=== PATIENT | female | born 1985 | race Asian ===

== ENCOUNTER → 2018-08-06 | Outpatient (CLI) | payer OTHER ==
[2018-08-06 10:45] LABS: ALKALINE PHOSPHATASE 52 U/L (46-116); ALT/SGPT 15 U/L (14-59); AST/SGOT 13 U/L (15-37); BILIRUBIN TOTAL 0.5 mg/dL (0.20-1.00); CALCIUM 8.4 mg/dL (8.5-10.1); CARBON DIOXIDE 30.1 mmol/L (21-32); CHLORIDE SERUM 103 mmol/L (98-107); CHOLESTEROL 177 mg/dL (<200); CHOLESTEROL/HDL RATIO 3.1; CREATININE SERUM 0.6 mg/dL (0.6-1.0); FREE T4 1.11 ng/dL (0.76-1.46); GFR1 > 60 mL/min; GLUCOSE SERUM 86 mg/dL (74-106); HDL CHOLESTEROL 57 mg/dL (40-60); SODIUM SERUM 137 mmol/L (136-145); TRIGLYCERIDES 71 mg/dL (<150)
[2018-08-06 10:57] LABS: BASOPHIL % 0.4 % (0-2); PLATELET COUNT 289 x10^3mcL (130-400); RED CELL DISTRIBUTION WIDTH 13.2 % (11.5-14.5)
[2018-08-06 10:58] LABS: TOTAL PROTEIN, SERUM 8.4 g/dL (6.4-8.2)
[2018-08-06 11:01] LABS: UA SPECIFIC GRAVITY >=1.030 (1.005-1.035); microscopic required? YES; urine erythrocyte 3+ (NEGATIVE)
== END | disposition home or self-care (01) ==
LOC: LB 09:51
PROVIDERS: Family Medicine Geriatric Medicine
DX: Z13.29 Encounter for screening for other suspected endocrine disorder (principal); Z13.228 Encounter for screening for other metabolic disorders; Z13.21 Encounter for screening for nutritional disorder; Z13.1 Encounter for screening for diabetes mellitus; Z13.0 Encounter for screening for diseases of the blood and blood-forming organs and certain disorders involving the immune mechanism; Z13.220 Encounter for screening for lipoid disorders
CPT/HCPCS: 82652; 84439